=== PATIENT | female | born 1980 | race Two or more races ===

== ENCOUNTER 2016-11-04 06:46 | Day surgery (SDC) | payer OTHER ==
[~2016-11-04 06:46] MED LIST: HYDROmorphone 2 MG/ML SDV IVPUSH PRN; Ondansetron 4 MG/2 ML SDV IVPUSH PRN; fentaNYL 100 MCG/2 ML SDV IVPUSH PRN
[2016-11-04] MEDS ORDERED: Sodium Chloride 0.9% 10 ML Syringe FLUSH PRN (07:00)
[2016-11-04] MEDS: Lactated Ringers 1,000 ML IV SCH ×2 (07:59→09:18)
[2016-11-04] MEDS ORDERED: Rocuronium 50 MG/5 ML Vial IV ONE (08:00)
[2016-11-04] MEDS ORDERED: Propofol 200 MG/20 ML SDV IV ONE (08:00)
[2016-11-04] MEDS ORDERED: Dexamethasone 4 MG/ML 5 ML MDV IVPUSH ONE (08:00)
[2016-11-04] MEDS ORDERED: HYDROmorphone 2 MG/ML SDV IV ONE (08:00)
[2016-11-04] MEDS ORDERED: Midazolam 1 MG/ML 2 ML SDV IV ONE (08:00)
[2016-11-04] MEDS ORDERED: fentaNYL 100 MCG/2 ML SDV IV ONE (08:00)
[2016-11-04] MEDS ORDERED: Ondansetron 4 MG/2 ML SDV IVPUSH ONE (08:00)
[2016-11-04] MEDS ORDERED: Ketorolac 30 MG/ML SDV IVPUSH ONE (08:00)
[2016-11-04] MEDS ORDERED: Succinylcholine/Normal Saline 200 MG/10 ML Syringe IV ONE (08:00)
[2016-11-04] MEDS ORDERED: Bupivacaine 0.5% 30 ML SDV ONE (08:17)
[2016-11-04] MEDS ORDERED: Lidocaine 1% with EPINEPHrine 1:100,000 20 ML MDV ONE (08:17)
--- NOTE | 2016-11-04 08:51 | PCM.OPNOTE ---
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
[2016-11-04 10:22] VITALS: BP 144/90
--- NOTE | 2016-11-04 13:35 | OR ---
DATE OF OPERATION: 11/04/2016 SURGEON: Chacorta Blancas MD PROCEDURE: Excisional biopsy of the anterior abdominal wall mass. PREOPERATIVE DIAGNOSIS: Endometrioma of abdominal wall. POSTOPERATIVE DIAGNOSIS: Endometrioma of abdominal wall. INDICATIONS FOR PROCEDURE: This is a 35-year-old white female, who has a tender mass located in the left lateral aspect of the Pfannenstiel incision. It has slowly developed in the past 10 years since her section. It gets larger and more painful during her period and intends to shrink down but never completely resolves. On exam and history, findings appeared to be consistent with an endometrioma and she was offered and accepted excisional biopsy. DESCRIPTION OF OPERATION: After an excellent general endotracheal anesthetic was administered, the patient was prepped and draped in usual sterile manner. A grand total of 8 mL of 1:1 mixture of 1% lidocaine with epinephrine, 0.5% bupivacaine was used to infiltrate the area surrounding the mass. A 5-cm incision was made through the lateral aspect of her previous Pfannenstiel incision. Sharp and electrocautery dissection was then carried out around the mass, mobilizing the mass. Care was taken not to enter the defect itself. The mass itself measured approximately 3.5 cm in diameter and the specimen was passed off the field. The wound was then irrigated with sterile water and closed in two layers approximating subcu fat, with a running 3-0 Vicryl and 3-0 Vicryl was used to close the skin. Steri-Strips were applied. Needle, sponge, and instrument counts were reported as correct. The patient was taken to recovery room in good condition. /[id number] /MODL
== END 2016-11-04 11:05 | disposition home or self-care (01) ==
LOC: FB.SDS 06:46
PROVIDERS: ATTEND Surgery
PROC: 0WBF0ZZ Excision of Abdominal Wall, Open Approach (ICD-10-PCS; principal; 2016-11-04)
PROC: 0JB80ZZ Excision of Abdomen Subcutaneous Tissue and Fascia, Open Approach (ICD-10-PCS; 2016-11-04)
DX: N80.8 Other endometriosis (principal); N12 Tubulo-interstitial nephritis, not specified as acute or chronic; R30.0 Dysuria; Z87.891 Personal history of nicotine dependence
CPT/HCPCS: 49203; 81025; 88307; J1100; J1170; J1885; J2250; J2405; J2704; J3010; J7120